=== PATIENT | female | born 1965 | race Two or more races ===

== ENCOUNTER 2016-08-04 22:58 | Emergency (ER) | payer OTHER ==
--- NOTE | ~2016-08-04 | ER ---
PATIENT'S NAME: [facility] AGE: 51 Y [address] ROOM: [place] [address] LOCATION: [facility] ADMIT DATE: 08/04/2016 ER/Outpatient Report DISCHARGE DATE: FAMILY PHYSICIAN: Adam Cotto MD ATTENDING PHYSICIAN: Vernon Leija Date and time of admission documented on the medical record. I saw the patient at 2315 hours. CHIEF COMPLAINT: Mid upper back pain. HISTORY OF PRESENT ILLNESS: This patient is a 51-year-old female who comes in with mid upper back pain that she has had for about an hour. It started after she got off work. She works for a shift at [employer] and then works at [employer] till 8. She has had a cold with cough, but does not seem that the cough makes the pain any worse and movement does not make the pain any worse. No real anterior chest pain or shortness of breath. No lightheadedness, dizziness, syncope, or near syncope. No fall or trauma. No headache, eyes, ears, nose, throat, neck pain. No abdominal pain, nausea, vomiting, diarrhea, urinary frequency, urgency, or dysuria. No joint or muscle swelling, redness, or pain. No skin eruptions or rash. No history of endocrine problems, neuro changes, or psych issues. HOME MEDICATIONS: See attached medication list. ALLERGIES: NONE. SOCIAL HISTORY: Nonsmoker and nondrinker. SIGNIFICANT PAST MEDICAL HISTORY: 1. Dyslipidemia. 2. Hypertension. 3. Left breast cancer. OPERATIONS: 1. . 2. Carpal tunnel release. REVIEW OF SYSTEMS: All systems reviewed by me are negative with the exception of those discussed in the history of present illness. PATIENT'S NAME: [facility] AGE: 51 Y [address] ROOM: [place] [address] LOCATION: [facility] ADMIT DATE: 08/04/2016 ER/Outpatient Report DISCHARGE DATE: FAMILY PHYSICIAN: Adam Cotto MD ATTENDING PHYSICIAN: Vernon Leija PHYSICAL EXAMINATION: VITAL SIGNS: Temperature 96.6, pulse 64, respirations 18, blood pressure 130/92, O2 saturation on room air is 94%. HEENT: Head: Normocephalic. Eyes: Clear. Ears: Clear TMs bilaterally. Nose and Throat: Clear. NECK: Negative. SPINE: There is some point tenderness over the mid thoracic spine. No step- off. No deformity. LUNGS: Clear. Good air flow. No rales, rhonchi, or wheezes. HEART: Regular. Pulses are palpable. No chest wall or ribcage pain to palpation. ABDOMEN: Soft, nondistended, nontender. Good bowel tones. No organomegaly or abnormal mass palpable. EXTREMITIES: No peripheral edema, cyanosis or deformity. Neurovascularly intact. SKIN: Clear. IMAGING DATA: Chest x-ray showed no acute infiltrate. We will review x-ray with the radiologist. LABORATORY DATA: CRP was less than 0.29, white count is 5100, 53 segs, 36 lymphs, 7 monos, 4 eos. Hemoglobin is 14.1 with hematocrit 41.6, platelet count is 242,000. Sed rate was normal at 17. CPK was normal at 108. Point of care cardiac enzymes were normal. CMS was normal except for potassium of 3.0, elevated glucose at 131, elevated AST at 141, elevated ALT at 112. D-dimer was normal at 0.26. Lactate was 1.1. Procalcitonin was less than 0.05. IMPRESSION: 1. Mid upper back pain mainly mid thoracic spine pain, etiology uncertain. Must be musculoskeletal, but did not see any abnormalities on chest x- ray. There are no abnormalities on her laboratory studies other than an elevation of liver enzymes and low potassium. PLAN: We will dismiss the patient home. Observation. Activity as tolerated. Heating pad to sore areas intermittently as needed. Percocet as needed for pain. Fluids, diet as tolerated. Continue present home medications and care. Follow up with personal physician in 2-3 for followup exam hours or sooner if needed. Discussion ensued with the patient concerning my findings and recommendations, she understands. PATIENT'S NAME: BENJY [facility] AGE: 51 Y [address] ROOM: [place], [place] [address] LOCATION: [facility] ADMIT DATE: 08/04/2016 ER/Outpatient Report DISCHARGE DATE: FAMILY PHYSICIAN: Adam Cotto MD ATTENDING PHYSICIAN: Vernon Leija MD ÁLVARO BHATIA/altagracia /[id number] d: 08/05/16 0058 t: 08/05/16 1813, OUTPATIENT REPORT
[2016-08-04 23:45] LABS: BASOPHIL % 0.4 %; EOSINOPHIL # 0.2 K/uL (0.0-0.5); EOSINOPHIL % 3.5 %; HEMATOCRIT 41.6 % (33.0-46.0); HEMOGLOBIN 14.1 g/dL (10.0-15.0); IMMATURE GRANULOCYTE % 0.6 %; LYMPHOCYTE # 1.8 K/uL (0.8-4.0); LYMPHOCYTE % 35.7 %; MCH 28.3 pg (27.0-34.0); MCHC 33.9 gm/dL (32.0-36.5); MCV 83.5 fl (83.0-98.0); MONOCYTE # 0.3 K/uL (0.0-1.0); MONOCYTE % 6.6 %; MPV 10.8 fl (9.4-12.4); NEUTROPHIL # (ANC) 2.7 K/uL (1.8-7.8); NEUTROPHIL % 53.2 %; NRBC % 0 /100WBC (0-0.00); PLATELET COUNT 242 K/uL (150-450); RBC 4.98 M/uL (3.50-5.50); RDW-CV 13.1 % (11.9-14.6); WBC 5.1 K/uL (4.0-11.0)
[2016-08-05 00:08] LABS: ALBUMIN 3.6 gm/dL (3.5-5.0); ALK PHOS 111 IU/L (33-138); ALT 112 IU/L (12-78); AST 141 IU/L (10-40); BLOOD UREA NITROGEN 17 mg/dL (6-24); CALCIUM 8.5 mg/dL (8.5-10.5); CHLORIDE 105 mMol/L (96-110); CO2 24 mMol/L (22-32); CPK 108 IU/L (21-215); CREATININE 0.6 mg/dL (0.5-1.1); ESTIMATED GFR (MDRD EQUATION) > 60; SODIUM 140 mMol/L (135-145); TOTAL PROTEIN 7.1 g/dL (6.0-8.4)
== END 2016-08-05 00:37 | disposition disaster alternative care site (69) ==
LOC: GMED 22:58
PROVIDERS: Emergency Medicine
DX: M54.6 Pain in thoracic spine (principal); I10 Essential (primary) hypertension; E78.5 Hyperlipidemia, unspecified; C50.912 Malignant neoplasm of unspecified site of left female breast; Z98.890 Other specified postprocedural states

== ENCOUNTER 2016-11-19 18:43 | Emergency (ER) | payer OTHER ==
--- NOTE | ~2016-11-19 | ER ---
PATIENT'S NAME: [facility] AGE: 51 Y [address] ROOM: [place] [address] LOCATION: [facility] ADMIT DATE: 11/19/2016 ER/Outpatient Report DISCHARGE DATE: 11/19/2016 FAMILY PHYSICIAN: Adam Cotto MD ATTENDING PHYSICIAN: Jerrod Randall Time of Arrival: 1849 hours. Time of Evaluation: 1905 hours. HISTORY OF PRESENT ILLNESS: This is a 51-year-old female. She is previously healthy. She is in with complaint of right wrist pain. She states she was carrying a child down some stairs and her leg gave out and she fell on an outstretched hand. She felt a pop and had immediate pain and deformity of her right wrist. PAST MEDICAL HISTORY: Significant for hypertension, [id number] diabetes, previous breast cancer, and hypercholesterolemia. CURRENT MEDICATIONS: See list. REVIEW OF SYSTEMS: She denies any recent illnesses. SOCIAL HISTORY: She is a nonsmoker. PHYSICAL EXAMINATION: GENERAL: Alert, pleasant, cooperative female, appeared be quite uncomfortable, in no acute distress. VITAL SIGNS: Stable. SKIN: Warm and dry. Color is normal. HEAD, EARS, EYES, NOSE, AND THROAT: Revealed no trauma. NECK: Nontender. CHEST: There was no evidence of chest trauma. Breath sounds were equal. ABDOMEN: Soft. EXTREMITIES: She had an obvious deformity of her right wrist. Distal neurovascular function was intact. LABORATORY DATA AND X-RAYS: Radiographic examination of the right wrist revealed a comminuted intraarticular distal radius fracture. EMERGENCY DEPARTMENT COURSE: PATIENT'S NAME: TISHA [facility] AGE: 51 Y [address] ROOM: [place] [address] LOCATION: [facility] ADMIT DATE: 11/19/2016 ER/Outpatient Report DISCHARGE DATE: 11/19/2016 FAMILY PHYSICIAN: Adam Cotto MD ATTENDING PHYSICIAN: Jerrod Randall Hematoma block was performed. The patient was placed in traction. The fracture was gently manipulated and splinted. I discussed the case with the orthopedist on-call and he agreed to see the patient in followup in 2 to 3 days. ASSESSMENT: Distal radius fracture, comminuted intraarticular, closed fracture. PLAN: Ice. Elevate. Splint. Immobilization. Follow up with the orthopedist in 2 to 3 days. JERROD RANDALL MD JIKER/modl /[id number] d: 12/04/162236 t: 12/27/16 1753, OUTPATIENT REPORT
== END 2016-11-19 20:04 ==
LOC: GACC 18:43
DX: S52.571A Other intraarticular fracture of lower end of right radius, initial encounter for closed fracture (principal); E78.00 Pure hypercholesterolemia, unspecified; I10 Essential (primary) hypertension; E11.9 Type 2 diabetes mellitus without complications; C50.919 Malignant neoplasm of unspecified site of unspecified female breast; Z89.612 Acquired absence of left leg above knee; W10.8XXA Fall (on) (from) other stairs and steps, initial encounter; Y93.89 Activity, other specified

== ENCOUNTER → 2016-12-20 | Outpatient (CLI) | payer OTHER | END | disposition disaster alternative care site (69) | LOC: GNUT 12-03 15:30 | DX: E11.9 Type 2 diabetes mellitus without complications (principal) ==